=== PATIENT | male | born 1950 | race Caucasian/White ===

== ENCOUNTER → 2016-11-17 | Outpatient (CLI) | payer MEDICARE, OTHER ==
[~2016-11-17] MED LIST: FLOMAX 0.4MG C0.4 MG PO; HYDROCODONE-APA1 TA1 PO; MELATONIN1 M1 PO; PERCOCET 5/3251 EACH PO; VITAMIN B121 TA1 PO
--- NOTE | 2016-11-17 15:40 | RADIOLOGY REPORT PS360 ---
CHEST(2 VIEWS-NOT PORTABLE) HISTORY: BRONCHITIS ORDERING PHYSICIAN: DILLON Bee PATIENT AGE: 66 years COMPARISON: 09/05/2016 FINDINGS: The cardiomediastinal silhouette and pulmonary vascularity are within normal limits. Hyperinflation with attenuation of peripheral pulmonary vessels consistent with obstructive chronic bronchitis. No lobar consolidation or collapse. There is mild prominence of the interstitium in the lung bases and there is evidence of old granulomatous disease. No lobar consolidation or collapse. Previously noted infiltrate in the lung base posteriorly has improved.. No acute bony abnormalities. IMPRESSION: COPD with chronic interstitial changes
== END ==
LOC: RAD 14:57
DX: J40 Bronchitis, not specified as acute or chronic (principal)